=== PATIENT | female | born 1940 | race Caucasian/White ===

== ENCOUNTER 2024-10-26 16:56 | Observation (INO) ==
--- NOTE | 2024-10-26 17:13 | Emergency Department Note ---
Impression & Plan Dizziness, Hypoxia, Shortness of breath, Urinary tract infection, Abdominal pain ED Provider Note CHIEF COMPLAINT: Dizziness, headache, UTI, hypertension, loss of balance HISTORY OF PRESENTING ILLNESS: The patient is an 84-year-old female who presents to the emergency department with her son reporting hypertension, dizziness, and a headache that started 2 days ago. The patient's son states that her speech and mental status is normal but is "worried about her loss of balance". The patient describes her dizziness as when she stands up she feels as if she can fall over. She denies falling. She does live alone but her son lives directly next to her and constantly is checking on her. She reports that approximately a week ago she completed a course of antibiotics and has been having ongoing UTIs as well as urinary issues since a gynecological sling surgery performed in 2022 for prolapse. She confirms burning with urination, urgency, frequency, headaches, dizziness, lower abdominal pain, and just not feeling herself. She denies fevers, upper respiratory symptoms, chest pain, shortness of breath, nausea or vomiting, constipation or diarrhea. REVIEW OF SYSTEMS: See HPI for pertinent positives and pertinent negatives. ALLERGIES: Morphine antibiotics, morphine MEDICATIONS: See below PAST MEDICAL HISTORY: See below PHYSICAL EXAM: VITALS: Vitals are noted on the nurse's note and reviewed by myself. Vital signs stable. GENERAL: 84-year-old female, lying comfortably in bed, in no acute distress, nondiaphoretic, well-developed well-nourished. SKIN: Capillary refill less than 2 seconds. HEENT: Normocephalic. PERRLA. EOMI. Nares patent. Mucous membranes moist. Neck is supple without nuchal rigidity. HEART: Regular rate and rhythm without murmurs gallops or rubs. LUNGS: Clear to auscultation bilaterally without wheezes, rales or rhonchi. Patient was coughing during physical exam. No retractions or accessory muscle use. ABDOMEN: Positive bowel sounds x 4. Normal tympanic percussion. Tenderness upon palpation to the right and left lower abdominal quadrants as well as the suprapubic region. Soft, without masses or organomegaly. No guarding or rebound tenderness. MUSCULOSKELETAL: No gross musculoskeletal defects. No pedal edema. NEURO: Patient was alert and oriented to person place and time. No focal neurological deficits. DIFFERENTIAL DIAGNOSIS: UTI, pyelonephritis, electrolyte abnormality, intracranial abnormality, upper respiratory infection, diverticulitis, bowel obstruction, inflammatory bowel disease, renal colic, PUD, biliary pathology, mesenteric ischemia, aortic pathology, perforated viscus, among others. ED COURSE AND MEDICAL DECISION MAKING: HISTORY FROM INDEPENDENT HISTORIAN: The patient herself and her son. MEDICATIONS GIVEN: 2 g Rocephin IV MONITOR: Continuous monitoring coordinator: Order was placed for continuous monitoring coordinator. Patient was placed on the monitoring coordinator and continuous pulse ox. Patient was noted to be in normal sinus rhythm at an initial rate of 77 bpm per my interpretation. EKG: EKG was interpreted by myself as normal sinus rhythm. No obvious arrhythmias. No ST or T wave abnormality. INTERPRETATION OF LABS: I interpreted the labs with full lab results as below in the lab section of this note. Pertinent lab results discussed in the MDM section below. INTERPRETATION OF IMAGING: Imaging studies were interpreted by myself and read by radiology as per the imaging section of this note. Chest x-ray - Lung nodule seen in the right midlung zone measuring 7.5 mm shows an increase interval since compared to previous exam from 2016. Cardiomegaly noted. Head CT - No acute intracranial abnormality. Age-matched brain changes and small artery disease. CT abdomen pelvis - Bilateral pelvic fullness and increased urinary bladder wall thickness suggesting UTI. Hiatal hernia. Uncomplicated colonic diverticulosis. Appendix diameter 7 mm with fluid however no fat stranding. Right basal pulmonary consolidation. CONSULTATION: On-call [facility] hospitalist - Dr. Mayers - presented the patient to the provider explaining her UTI and new onset dizziness/headaches. Informed them of her ambulatory trial where she became hypoxic and tachycardic. They confirm that they would evaluate the patient and admit them to medicine for further evaluation and monitoring. MDM SUMMARY: I evaluated the 84-year-old female presents to the emergency department due to hypertension, dizziness, headache, and UTI symptoms. She has recently completed a course of antibiotics and is on nitrofurantoin for 3 months by her primary care provider. She confirms burning with urination, urgency, frequency, headaches, dizziness, lower abdominal pain, and just not feeling herself. She denies fevers, upper respiratory symptoms, chest pain, shortness of breath, nausea or vomiting, constipation or diarrhea. On exam she is lying comfortably in bed. Blood pressure elevated highest 196/110. All other vitals within normal limits. Positive bowel sounds x 4. Tenderness upon palpation to the right and left lower abdominal quadrants of the suprapubic region. No guarding or rebound tenderness. The remaining portion of the physical exam is unremarkable and can be seen in detail above. IV access was established and labs were obtained. Urinalysis collected. Due to the patient's abdominal pain and surgery complications from 2022 CT abdomen and pelvis was ordered. Due to new onset headaches and dizziness head CT and and chest x-ray were ordered. No leukocytosis WBC 7.02. RBC 4.22. Hemoglobin hematocrit 11.5/36.3. Mild anemia with no previous labs for comparison. Patient was informed to follow-up with primary care for repeat testing. No electrolyte abnormalities. BUN 16. Creatinine 0.93. AST 17. ALT 10. Troponin 4.19. BNP 55. Urinalysis shows 3+ leukocyte Estrace, greater than 50 urine WBC, and 4+ urine bacteria. The patient does confirm urinary symptoms. She was started on [address] shows no acute intracranial abnormality. Chest x-ray shows no acute abnormality, cardiomegaly. CT abdomen pelvis shows urinary bladder wall thickening suggestive of UTI. All other results including incidental were thoroughly reviewed with the patient. When the patient ambulated to the restroom the nursing staff notified me that her oxygen dropped to 81% upon ambulation. The patient does not report feeling short of breath but the nursing staff states that she did appear to be. An ambulatory trial was completed and the patient dropped to 88% and became tachycardic at a rate of 110. Patient is still denying symptoms at this time but the nurse confirms that she did appear short of breath once again. Due to the patient's UTI, new onset dizziness, as well as hypoxia she was admitted to medicine for further evaluation and IV antibiotics. Consultation with on-call hospitalist can be seen in detail above. The patient was informed of this decision and her and her son agreed to the treatment plan. All of their questions were answered. The patient was admitted in stable condition. DIAGNOSIS: Dizziness, hypoxia, shortness of breath, urinary tract infection, abdominal pain The chart was completed utilizing [employer] voice recognition software. Grammatical errors, random word insertions, pronoun errors, and incomplete sentences are an occasional consequence of this system due to software limitations, ambient noise, and hardware issues. Any formal questions or concerns about the content, text, or information contained within the body of this dictation should be directly addressed to the provider for clarification. 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 Trochanteric bursitis, left hip Anxiety (Chronic) Cervical dystonia (Chronic) GERD (gastroesophageal reflux disease) (Chronic) HTN (hypertension) (Chronic) Social History Smoking Status: Former smoker Preferred Language: Yi Feels Safe at Home: Yes Allergies Allergies Allergy/AdvReac Type Severity Reaction Status Date / Time Sulfa (Sulfonamide Allergy Severe MOUTH Unverified 11/25/21 09:23 Antibiotics) THROAT SWELLING,SWEATING morphine AdvReac Unknown hallucinati Verified 11/25/21 09:23 ons Home Meds Home Medications Medication Instructions Recorded Confirmed Multivitamin 1 tab PO QAM ##0 02/20/09 10/26/24 Calcium/Vitamin D (Caltrate 600 1 tab PO QAM ##0 06/10/10 10/26/24 Plus *) Lansoprazole (Prevacid) 30 mg PO QAM ##0 06/10/10 10/26/24 Stool Softener 1 cap PO QAM ##0 07/16/10 10/26/24 Diazepam (Valium) 5 mg PO HS PRN RN #0 tabs 11/20/15 10/26/24 Estrogens, Conjugated (Premarin) 0.625 mg PO QAM #0 tabs 11/20/15 10/26/24 LOSARTAN POTASSIUM (COZAAR) 50 mg PO QAM #0 tabs 11/20/15 10/26/24 MIRABEGRON (MYRBETRIQ ER) 25 mg PO QAM ##0 11/20/15 10/26/24 POLYETHYLENE GLYCOL 3350 (MIRALAX) 17 g PO QPM #255 grams 11/20/15 10/26/24 amitriptyline 25 mg tablet 25 mg PO DAILY 11/25/21 10/26/24 atorvastatin 20 mg tablet 20 mg PO DAILY 11/25/21 10/26/24 lansoprazole 30 mg capsule,delayed 30 mg PO DAILY 11/25/21 10/26/24 release losartan 50 mg tablet 50 mg PO DAILY 11/25/21 10/26/24 montelukast 10 mg tablet 10 mg PO DAILY 11/25/21 10/26/24 oxybutynin chloride 5 mg tablet 5 mg PO DAILY 11/25/21 10/26/24 propranolol 60 mg capsule,24 60 mg PO DAILY 11/25/21 10/26/24 hr,extended release Previous Rx's Medication Instructions Recorded Acetaminophen (Tylenol Extra 1,000 mg PO Q8 30 days #180 tabs 12/16/15 Strength) Aspirin 325 mg PO BID 45 days ##90 12/16/15 Ferrous Gluconate 324 mg PO BIDM 30 days #60 tabs 12/16/15 Oxycodone HCl 5 mg PO Q4H PRN Pain 30 days #60 12/16/15 tabs Tapentadol HCl (Nucynta ER) 50 mg PO Q12 10 days ##20 12/16/15 Results & Data (ED) Vital Signs Vital Signs - 24 hr 10/26/24 17:03 10/26/24 17:16 10/26/24 17:16 Temperature 36.6 C Temperature Source Temporal Artery Scan Pulse Rate - Lying Pulse Rate - Sitting Pulse Rate - Standing Pulse Rate 81 Pulse Rate [Apical] 81 Respiratory Rate 20 19 Respiratory Effort / Characteristics Non-Labored Spontaneous Non-Labored Spontaneous Respiratory Depth Normal Normal Respiratory Pattern Regular Blood Pressure - Lying Blood Pressure - Sitting Blood Pressure- Standing Blood Pressure 146/88 H Blood Pressure [Right Arm] 164/110 H Blood Pressure Mean 107 Blood Pressure Mean [Right Arm] 128 Pulse Oximetry 95 95 95 Oxygen Delivery Method Room Air Room Air Room Air Sepsis Recent Fever Within 48 Hours No Sepsis New/Unexplained Change in Mental Status N/A Sepsis Action Taken by Nursing No Action Required 10/26/24 17:21 10/26/24 17:25 10/26/24 18:30 Temperature Temperature Source Pulse Rate - Lying Pulse Rate - Sitting Pulse Rate - Standing Pulse Rate 79 Pulse Rate [Apical] 74 Respiratory Rate 20 Respiratory Effort / Characteristics Non-Labored Spontaneous Respiratory Depth Normal Respiratory Pattern Blood Pressure - Lying Blood Pressure - Sitting Blood Pressure- Standing Blood Pressure Blood Pressure [Right Arm] 173/87 H Blood Pressure Mean Blood Pressure Mean [Right Arm] 115 Pulse Oximetry 95 94 Oxygen Delivery Method Room Air Sepsis Recent Fever Within 48 Hours Sepsis New/Unexplained Change in Mental Status Sepsis Action Taken by Nursing 10/26/24 19:30 10/26/24 21:05 10/26/24 21:30 Temperature Temperature Source Pulse Rate - Lying 74 Pulse Rate - Sitting 82 Pulse Rate - Standing 83 Pulse Rate Pulse Rate [Apical] 82 77 Respiratory Rate 26 H 21 Respiratory Effort / Characteristics Non-Labored Spontaneous Non-Labored Spontaneous Respiratory Depth Normal Normal Respiratory Pattern Regular Blood Pressure - Lying 178/100 H Blood Pressure - Sitting 172/102 H Blood Pressure- Standing 166/105 H Blood Pressure Blood Pressure [Right Arm] 162/81 H 196/110 H Blood Pressure Mean Blood Pressure Mean [Right Arm] 108 138 Pulse Oximetry 93 92 Oxygen Delivery Method Room Air Room Air Sepsis Recent Fever Within 48 Hours Sepsis New/Unexplained Change in Mental Status Sepsis Action Taken by Nursing Laboratory Data 10/26/24 17:21 10/26/24 17:21 Lab Results 10/26/24 10/26/24 10/26/24 Range/Units 17:21 17:33 18:12 WBC 7.02 (4.8-10.8) K/ul RBC 4.22 (4.20-5.40) M/uL Hgb 11.5 L (12.0-16.0) g/dl Hct 36.3 L (37.0-47.0) % MCV 86.0 (80.0-100.0) fL MCH 27.3 (25.0-34.0) pg MCHC 31.7 L (32.0-36.0) g/dL RDW Std Deviation 44.1 (36.4-46.3) fL RDW Coeff of Eriberto 14.3 (11.5-14.5) % Plt Count 254 (130-400) K/uL MPV 9.8 (9.4-12.4) fL Immature Gran % (Auto) 0.3 % Neut % (Auto) 49.8 % Lymph % (Auto) 33.8 % [place] % (Auto) 10.4 % Eos % (Auto) 5.0 % Baso % (Auto) 0.7 % Neut # (Auto) 3.50 (1.40-6.50) K/uL Lymph # (Auto) 2.37 (1.20-3.40) K/uL [place] # (Auto) 0.73 H (0.11-0.59) K/uL Eos # (Auto) 0.35 (0.00-0.50) K/uL Baso # (Auto) 0.05 (0.00-0.20) K/uL Immature Gran # (Auto) 0.02 (0.01-0.20) K/uL Sodium 136 (136-145) mmol/L Potassium 4.1 (3.5-5.1) mmol/L Chloride 101 (98-107) mmol/L Carbon Dioxide 29 (21-32) mmol/L Anion Gap 6 (3-11) BUN 16 (6-23) mg/dl Creatinine 0.93 (0.6-1.2) mg/dl Est Cr Clr Drug Dosing 37.7 ml/min eGFR 60.98 BUN/Creatinine Ratio 17.2 (10-20) Glucose 106 H (70-99(Fasting)) mg/dl Lactate 1.0 (0.4-2.0) mmol/L Calcium 9.6 (8.6-10.3) mg/dl Total Bilirubin 0.2 (0.2-1.0) mg/dl AST 17 (13-39) U/L ALT 10 (7-52) U/L Alkaline Phosphatase 79 (34-104) U/L Troponin I High Sens 4.9 (0-14) pg/ml B-Natriuretic Peptide 55 (0-100) pg/ml Total Protein 7.9 (6.0-8.3) gm/dl Albumin 4.4 (3.4-5.0) gm/dl Globulin 3.5 (2.5-4.0) gm/dl Albumin/Globulin Ratio 1.3 (0.9-2) Urine Color Yellow Urine Appearance Cloudy A (Clear) Urine pH 6.5 (4.5-7.5) Ur Specific [place] 1.010 (1.000-1.030) Urine Protein Negative (Negative) Urine Glucose (UA) Negative (Negative) Urine Ketones Negative (Negative) Urine Blood Negative (Negative) Urine Nitrite Negative (Negative) Urine Bilirubin Negative (Negative) Urine Urobilinogen Negative (Negative) Ur Leukocyte Esterase 3+ H (Negative) Urine WBC (Auto) >50 H (0-5) /hpf Urine RBC (Auto) 0-2 (0-2) /hpf U Hyaline Cast (Auto) 0-2 (0-2) /lpf U Epithel Cells (Auto) 6-10 H (0-2) /hpf Urine Bacteria (Auto) 4+ H (None Seen) Urine Comment Administered Medications Discontinued Medications Amitriptyline HCl (Amitriptyline Hcl 25 Mg Tab) 25 mg PO ONE STA Stop: 10/26/24 22:01 Last Admin: 10/26/24 22:23 Dose: 25 mg Documented By: HUNG Docusate Sodium (Docusate Sodium 100 Mg Cap) 100 mg PO NOW STA Stop: 10/26/24 22:03 Last Admin: 10/26/24 22:23 Dose: 100 mg Documented By: HUNG Ceftriaxone Sodium (Rocephin) 2,000 mg in 50 mls @ 100 mls/hr IV NOW STA Stop: 10/26/24 22:07 Last Infusion: 10/26/24 22:20 Dose: Infused Documented By: Admin: 10/26/24 21:46 Dose: 100 mls/hr Documented By: HUNG Ioversol (Optiray 320 100ml) 90 ml IV ONCE ONE Stop: 10/26/24 18:58 Last Admin: 10/26/24 18:57 Dose: 90 ml Documented By: RADHAMES Imaging Data Radiologist's Impression: Abdomen/Pelvis CT 10/26/24 17:22 EXAM: CT abd pelvis IV con only CLINICAL HISTORY: LLQ, suprapubic, RLQ abdominal pain, UTI TECHNIQUE: CT of the abdomen and pelvis was performed with 90 ML OPTIRAY 320 contrast, with the following protocol: axial images with, and reconstructed coronal and sagittal images. One of the following dose reduction techniques was utilized for this exam: Automated exposure control, adjustment of the mA and/or kV according to patient size, and use of iterative reconstruction. COMPARISON: No prior studies available for comparison. FINDINGS: Abdomen: Liver: Liver is mildly enlarged measures 17.3 cm in craniocaudal axis with normal shape, and density. A small geographical hypodense area is seen in segment V of liver, likely focal fatty infiltration. Few calcific granulomas are seen. Hepatic vasculature and biliary ducts are unremarkable. Gallbladder and Biliary System: The gallbladder is surgically removed with cholecystectomy clips in situ. The common bile duct is normal in caliber without dilation. Pancreas: Pancreatic head, body, and tail are visualized and appear normal in size and density. No pancreatic masses or calcifications were noted. The pancreatic duct is not dilated. Spleen: Normal in size, shape, and density. No splenic lesions or masses were identified. Calcific splenic granulomas are seen. Appendix: The appendix shows a diameter of 7 mm with fluid/mucin within its canal and an appendicolith however no annabelle appendiceal fat stranding. No evidence of appendiceal abscess or perforation. Kidneys and Adrenal Glands: Both kidneys are normal in size, shape, and position. Cortical thickness is within normal limits. No renal calculi however bilateral pelvic fullness is seen. Adrenal glands are unremarkable with no evidence of masses or hyperplasia. Pelvis: Urinary Bladder shows increased wall thickening of up to 5 mm. No intraluminal lesions identified. Uterus: Not visualised. Peritoneal and Retroperitoneal Structures: No free fluid or abnormal fluid collections were identified within the abdomen or pelvis. No lymphadenopathy was noted. Few tiny scattered calcific nodules are seen. A 6.6 mm fat containing supraumbilical hernia is seen. Atherosclerotic calcifications of aorta and its branches. Bowel: Multiple uncomplicated colonic diverticula are seen along sigmoid colon. No evidence of bowel obstruction or wall thickening. Sizable hiatal hernia is seen with increased mural thickening of herniated stomach upto 17 mm. Bones and Soft Tissues: Right hip replacement done. Spondylodegenerative changes of lumbar spine. No fractures or abnormal masses were identified. Slices through lung bases shows a right basal pulmonary consolidation measuring 25x17 mm. IMPRESSION: Bilateral pelvic fullness and increased urinary bladder wall thickness - suggest urine C/E for any UTI. Sizable hiatal hernia is seen with increased mural thickening of herniated stomach up to 17 mm. Uncomplicated colonic diverticulosis. The appendix shows a diameter of 7 mm with fluid within its canal and an appendicolith however no annabelle appendiceal fat stranding. Right basal pulmonary consolidation. Clinical correlation is recommended for further evaluation. Electronically signed by Vinh Mejia 10-26-2024 8:24 PM Chest X-Ray 10/26/24 17:23 EXAM: XR chest 1V portable CLINICAL HISTORY: Cough, dizziness, headaches. TECHNIQUE: An X-ray image of the chest is obtained in AP projection. COMPARISON: 11/20/2015. FINDINGS: Pulmonary Parenchyma: Lung nodule seen in the right mid lung zone measuring about 7.5 mm shows an interval increase compared with previous exam. No evidence of consolidation, collapse, or focal opacities. No evidence of pleural effusion or pleural thickening. Heart and Mediastinum: Cardiomegaly noted. No mediastinal widening or masses. No hilar or mediastinal lymphadenopathy. Bony Thorax: Bony thorax appears intact without fractures or deformities. Soft Tissues: Soft tissues overlying the chest wall are unremarkable. IMPRESSION: 1. A lung nodule seen in the right mid lung zone measuring about 7.5 mm shows an interval increase compared with the previous exam. 2. Cardiomegaly noted. Electronically signed by Vinh Mejia 10-26-2024 7:[address] 10/26/24 18:08 EXAM: CT head/brain wo con CLINICAL HISTORY: Dizziness, headaches. TECHNIQUE: Axial non-contrast CT scan of the brain was performed from the skull base to the high parietal region with coronal and sagittal reformats. One of the following dose reduction techniques were utilized for this exam: Automated exposure control, adjustment of the mA and/or kV according to patient size, use of iterative reconstruction. COMPARISON: None. FINDINGS: Brain Parenchyma: No evidence of acute infarct, hemorrhage, or mass effect. Accentuated periventricular white matter hypodenisty denoting small artery disease. Ventricular System: Mild symmetrical dilatation of the ventricular system with wide cortical sulci and extraaxial CSF spaces (involutional changes). No evidence of hydrocephalus. Subarachnoid Spaces: Wide sulci and cisterns. No evidence of subarachnoid hemorrhage or extra-axial fluid collections. Cerebellum and Brainstem: No masses, lesions, or areas of abnormal density. Side note of tentorial leaflet calcifications. Orbits: Normal appearance of the globes, optic nerves, and extraocular muscles. No evidence of orbital masses or abnormal density. Sinuses: Clear paranasal sinuses. No evidence of sinusitis or mucosal thickening. Mastoid Air Cells: Clear mastoid air cells. No evidence of mastoiditis. Skull: Normal skull morphology. No acute fractures. IMPRESSION: No CT evidence of acute infarct, hemorrhage, or mass effect. 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 Electronically signed by Vinh Mejia 10-26-2024 8:21 PM Discharge Plan Visit Data Chief Complaint: Dizziness Stated Complaint: DIZZY,HEADACHE,UTI,HTN,LOSS OF BALANCE ED Provider: [place] [facility] ED Midlevel Provider: Amy Callahan Discharge Problem: Dizziness, Hypoxia, Shortness of breath, Urinary tract infection, Abdominal pain Patient Disposition: Admitted As Inpatient Condition: Fair Discharge Instructions Interventions: ED Discharge Assessment Last Done: 10/26/24 22:45 Discharge Problem: Urinary tract infection Qualifiers: Urinary tract infection type: acute cystitis Hematuria presence: without hematuria Qualified Code(s): N30.00 - Acute cystitis without hematuria Abdominal pain Qualifiers: Abdominal location: lower abdomen, unspecified Qualified Code(s): R10.30 - Lower abdominal pain, unspecified
[2024-10-26 17:49] LABS: Basophils # (auto) 0.05 K/uL (0.00-0.20); Basophils % (auto) 0.7 %; Eosinophils # (auto) 0.35 K/uL (0.00-0.50); Hematocrit (blood only) 36.3 % (37.0-47.0); Hemoglobin 11.5 g/dl (12.0-16.0); Immature Granulocytes # (auto) 0.02 K/uL (0.01-0.20); Immature Granulocytes % (auto) 0.3 %; Lymphocytes # (auto) 2.37 K/uL (1.20-3.40); Lymphocytes % (auto) 33.8 %; Mean Corpuscular Hemoglobin 27.3 pg (25.0-34.0); Mean Corpuscular Hgb Conc 31.7 g/dL (32.0-36.0); Mean Platelet Volume 9.8 fL (9.4-12.4); Monocytes # (auto) 0.73 K/uL (0.11-0.59); Monocytes % (auto) 10.4 %; Neutrophils % (auto) 49.8 %; Platelet Count 254 K/uL (130-400); RDW Coefficient of Variation 14.3 % (11.5-14.5); RDW Standard Deviation 44.1 fL (36.4-46.3); Red Blood Count 4.22 M/uL (4.20-5.40); White Blood Count 7.02 K/ul (4.8-10.8)
[2024-10-26 18:06] LABS: Albumin Globulin Ratio 1.3 (0.9-2); Albumin Level 4.4 gm/dl (3.4-5.0); BUN Creatinine Ratio 17.2 (10-20); Bilirubin,Total 0.2 mg/dl (0.2-1.0); Calcium 9.6 mg/dl (8.6-10.3); Creatinine Clr Calc Pharmacy 37.7 ml/min; Globulin 3.5 gm/dl (2.5-4.0); Potassium 4.1 mmol/L (3.5-5.1); Total Protein 7.9 gm/dl (6.0-8.3)
[2024-10-26 18:13] LABS: Troponin I High Sensitivity 4.9 pg/ml (0-14)
[2024-10-26 18:33] LABS: Appearance Urine Cloudy (Clear); Bilirubin Urine Negative (Negative); Blood Urine Negative (Negative); Color Urine Yellow; Glucose Urine UA Negative (Negative); Ketones Urine Negative (Negative); Nitrite Urine Negative (Negative); Protein Urine Negative (Negative); Urobilinogen Urine Negative (Negative); pH Urine 6.5 (4.5-7.5)
[2024-10-26 18:34] LABS: Bacteria Urine Automated 4+ (None Seen); Cast Urine Automated 0-2 /lpf (0-2); Leukocyte Esterase Urine 3+ (Negative); RBC Urine Automated 0-2 /hpf (0-2); WBC Urine Automated >50 /hpf (0-5)
[2024-10-26] MEDS: OPTIRAY 320 100ml IV ONE (18:57)
--- NOTE | 2024-10-26 19:36 | XRay Report ---
EXAM: XR chest 1V portable CLINICAL HISTORY: Cough, dizziness, headaches. TECHNIQUE: An X-ray image of the chest is obtained in AP projection. COMPARISON: 11/20/2015. FINDINGS: Pulmonary Parenchyma: Lung nodule seen in the right mid lung zone measuring about 7.5 mm shows an interval increase compared with previous exam. No evidence of consolidation, collapse, or focal opacities. No evidence of pleural effusion or pleural thickening. Heart and Mediastinum: Cardiomegaly noted. No mediastinal widening or masses. No hilar or mediastinal lymphadenopathy. Bony Thorax: Bony thorax appears intact without fractures or deformities. Soft Tissues: Soft tissues overlying the chest wall are unremarkable. IMPRESSION: 1. A lung nodule seen in the right mid lung zone measuring about 7.5 mm shows an interval increase compared with the previous exam. 2. Cardiomegaly noted. Electronically signed by Vinh Mejia 10-26-2024 7:36 PM
--- NOTE | 2024-10-26 20:22 | CT Scan Report ---
EXAM: CT head/brain wo con CLINICAL HISTORY: Dizziness, headaches. TECHNIQUE: Axial non-contrast CT scan of the brain was performed from the skull base to the high parietal region with coronal and sagittal reformats. One of the following dose reduction techniques were utilized for this exam: Automated exposure control, adjustment of the mA and/or kV according to patient size, use of iterative reconstruction. COMPARISON: None. FINDINGS: Brain Parenchyma: No evidence of acute infarct, hemorrhage, or mass effect. Accentuated periventricular white matter hypodenisty denoting small artery disease. Ventricular System: Mild symmetrical dilatation of the ventricular system with wide cortical sulci and extraaxial CSF spaces (involutional changes). No evidence of hydrocephalus. Subarachnoid Spaces: Wide sulci and cisterns. No evidence of subarachnoid hemorrhage or extra-axial fluid collections. Cerebellum and Brainstem: No masses, lesions, or areas of abnormal density. Side note of tentorial leaflet calcifications. Orbits: Normal appearance of the globes, optic nerves, and extraocular muscles. No evidence of orbital masses or abnormal density. Sinuses: Clear paranasal sinuses. No evidence of sinusitis or mucosal thickening. Mastoid Air Cells: Clear mastoid air cells. No evidence of mastoiditis. Skull: Normal skull morphology. No acute fractures. IMPRESSION: No CT evidence of acute infarct, hemorrhage, or mass effect. 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 Electronically signed by Vinh Mejia 10-26-2024 8:21 PM
--- NOTE | 2024-10-26 20:25 | CT Scan Report ---
EXAM: CT abd pelvis IV con only CLINICAL HISTORY: LLQ, suprapubic, RLQ abdominal pain, UTI TECHNIQUE: CT of the abdomen and pelvis was performed with 90 ML OPTIRAY 320 contrast, with the following protocol: axial images with, and reconstructed coronal and sagittal images. One of the following dose reduction techniques was utilized for this exam: Automated exposure control, adjustment of the mA and/or kV according to patient size, and use of iterative reconstruction. COMPARISON: No prior studies available for comparison. FINDINGS: Abdomen: Liver: Liver is mildly enlarged measures 17.3 cm in craniocaudal axis with normal shape, and density. A small geographical hypodense area is seen in segment V of liver, likely focal fatty infiltration. Few calcific granulomas are seen. Hepatic vasculature and biliary ducts are unremarkable. Gallbladder and Biliary System: The gallbladder is surgically removed with cholecystectomy clips in situ. The common bile duct is normal in caliber without dilation. Pancreas: Pancreatic head, body, and tail are visualized and appear normal in size and density. No pancreatic masses or calcifications were noted. The pancreatic duct is not dilated. Spleen: Normal in size, shape, and density. No splenic lesions or masses were identified. Calcific splenic granulomas are seen. Appendix: The appendix shows a diameter of 7 mm with fluid/mucin within its canal and an appendicolith however no annabelle appendiceal fat stranding. No evidence of appendiceal abscess or perforation. Kidneys and Adrenal Glands: Both kidneys are normal in size, shape, and position. Cortical thickness is within normal limits. No renal calculi however bilateral pelvic fullness is seen. Adrenal glands are unremarkable with no evidence of masses or hyperplasia. Pelvis: Urinary Bladder shows increased wall thickening of up to 5 mm. No intraluminal lesions identified. Uterus: Not visualised. Peritoneal and Retroperitoneal Structures: No free fluid or abnormal fluid collections were identified within the abdomen or pelvis. No lymphadenopathy was noted. Few tiny scattered calcific nodules are seen. A 6.6 mm fat containing supraumbilical hernia is seen. Atherosclerotic calcifications of aorta and its branches. Bowel: Multiple uncomplicated colonic diverticula are seen along sigmoid colon. No evidence of bowel obstruction or wall thickening. Sizable hiatal hernia is seen with increased mural thickening of herniated stomach upto 17 mm. Bones and Soft Tissues: Right hip replacement done. Spondylodegenerative changes of lumbar spine. No fractures or abnormal masses were identified. Slices through lung bases shows a right basal pulmonary consolidation measuring 25x17 mm. IMPRESSION: Bilateral pelvic fullness and increased urinary bladder wall thickness - suggest urine C/E for any UTI. Sizable hiatal hernia is seen with increased mural thickening of herniated stomach up to 17 mm. Uncomplicated colonic diverticulosis. The appendix shows a diameter of 7 mm with fluid within its canal and an appendicolith however no annabelle appendiceal fat stranding. Right basal pulmonary consolidation. Clinical correlation is recommended for further evaluation. Electronically signed by Vinh Mejia 10-26-2024 8:24 PM
--- NOTE | 2024-10-26 21:36 | Emergency Department Note ---
ED Visit Note I was consulted by the Advanced Practice Provider. I personally made/approved the management plan and take responsibility for the patient management. I performed a substantive portion of the visit. This includes the aspects of: [-I independently interpreted the following studies:][Chest x-ray shows some mild cardiomegaly, no CHF or pneumonia.] The patient's laboratory workup is essentially unrevealing. Her chest x-ray does not show pneumonia or CHF. Urinalysis does show findings of infection. Additionally, the patient was hypoxic with exertion. Given her findings and given her complaints, hospitalization is indicated. .
[2024-10-26] MEDS: cefTRIAXone SODIUM 2,000 MG/50 ML BAG IV STA (21:46)
[2024-10-26] MEDS: AMITRIPTYLINE HCL 25 MG TAB PO STA (22:23)
[2024-10-26] MEDS: DOCUSATE SODIUM 100 MG CAP PO STA (22:23)
--- NOTE | 2024-10-27 02:10 | History & Physical Report ---
Date of Service October 26, 2024 Assessment & Plan (1) Urinary tract infection: (2) Hypoxia: (3) Dizziness: Plan 84 year old female presents to the ER with dysuria and ambulatory dysfunction #UTI / ambulatory dysfunction Suspect her UTI is contributing towards her unsteadiness on her feet Does not feel safe to return home at this time given her current balance IV ceftriaxone 1000mg IV daily pending urine culture PT/OT #Lung nodule Discussed with patient, recommend following up as outpatient #Hypoxia on exertion Suspect poor inspiratory effort related to her UTI, minimal changes on CT and CXR and history not suggestive of pneumonia Incentive spirometry Q1HWA Consider ambulatory trial prior to discharge #Urge incontinence Continue oxybutynin and Myrbetriq #Hypertension Continue losartan #Insomnia Recommend she stops taking over the counter diphenhydramine Use melatonin as needed VTE Prophylaxis - Lovenox 40mg SQ daily Disposition - observation to med/surg Admission and Anticipated Discharge Date Admission Date: October 26, 2024 History of Present Illness Chief Complaint: Urinary symptoms Loss of balance / dizziness Primary Care Provider: Francisco Leiva MD Modesta Mejia is an 84 year old female who presents to the ER with headache, dizziness and loss of balance starting 2 days ago. She denies lightheadedness or vertigo and feels her dizziness is more due to the loss of balance which is abnormal for her. She denies any falls. She lives alone. She has multiple UTIs a year and has been prescribed nitrofurantoin for prophylaxis but is yet to start this. She has chronic lower abdominal pain since her sling surgery but doesn't normal have dysuria which she is currently having. No flank pain or fevers. Allergies Allergy/AdvReac Type Severity Reaction Status Date / Time Sulfa (Sulfonamide Allergy Severe MOUTH Unverified 11/25/21 09:23 Antibiotics) THROAT SWELLING,SWEATING morphine AdvReac Unknown hallucinati Verified 11/25/21 09:23 ons Home Medications Medication Instructions Recorded Confirmed Type Multivitamin 1 tab PO QAM ##0 02/20/09 10/26/24 History Calcium/Vitamin D (Caltrate 600 1 tab PO QAM ##0 06/10/10 10/26/24 History Plus *) Lansoprazole (Prevacid) 30 mg PO QAM ##0 06/10/10 10/26/24 History Stool Softener 1 cap PO QAM ##0 07/16/10 10/26/24 History Diazepam (Valium) 5 mg PO HS PRN RN #0 tabs 11/20/15 10/26/24 History Estrogens, Conjugated (Premarin) 0.625 mg PO QAM #0 tabs 11/20/15 10/26/24 History LOSARTAN POTASSIUM (COZAAR) 50 mg PO QAM #0 tabs 11/20/15 10/26/24 History MIRABEGRON (MYRBETRIQ ER) 25 mg PO QAM ##0 11/20/15 10/26/24 History POLYETHYLENE GLYCOL 3350 (MIRALAX) 17 g PO QPM #255 grams 11/20/15 10/26/24 History Acetaminophen (Tylenol Extra 1,000 mg PO Q8 30 days #180 tabs 12/16/15 10/26/24 Rx Strength) Aspirin 325 mg PO BID 45 days ##90 12/16/15 10/26/24 Rx Ferrous Gluconate 324 mg PO BIDM 30 days #60 tabs 12/16/15 10/26/24 Rx Oxycodone HCl 5 mg PO Q4H PRN Pain 30 days #60 12/16/15 10/26/24 Rx tabs Tapentadol HCl (Nucynta ER) 50 mg PO Q12 10 days ##20 12/16/15 10/26/24 Rx amitriptyline 25 mg tablet 25 mg PO DAILY 11/25/21 10/26/24 History atorvastatin 20 mg tablet 20 mg PO DAILY 11/25/21 10/26/24 History lansoprazole 30 mg capsule,delayed 30 mg PO DAILY 11/25/21 10/26/24 History release losartan 50 mg tablet 50 mg PO DAILY 11/25/21 10/26/24 History montelukast 10 mg tablet 10 mg PO DAILY 11/25/21 10/26/24 History oxybutynin chloride 5 mg tablet 5 mg PO DAILY 11/25/21 10/26/24 History propranolol 60 mg capsule,24 60 mg PO DAILY 11/25/21 10/26/24 History hr,extended release nitrofurantoin macrocrystal 50 mg 50 mg PO DAILY 10/27/24 10/27/24 History capsule 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 Trochanteric bursitis, left hip Anxiety (Chronic) Cervical dystonia (Chronic) GERD (gastroesophageal reflux disease) (Chronic) HTN (hypertension) (Chronic) Social History Smoking Status: Former smoker Smoking End Date: 43 years ago; Hx Alcohol Use: No Hx Substance Use: No Preferred Language: Yoruba Esthetician Makeup Artist Required: No Beliefs That Will Affect Care: None Current Living Situation: Alone Other Information That Helps Us Care for You: No Feels Safe at Home: Yes Safety Concerns: Feels Safe At This Time Assistive Devices: Glasses and Other Assistive Devices Comment: partial lower plate Review of Systems Review of Systems: All systems reviewed & are unremarkable except as noted in HPI & below Physical Exam Constitutional: WD/WN, vitals as above ENMT: external ear and nose normal, oropharynx normal Respiratory: normal respiratory effort, lungs clear to auscultation Cardiovascular: RRR, no murmur, no edema Gastrointestinal (Abdomen): Percussion/Palpation: + abdomen tender (s uprapubic) and abdomen soft; no guarding and abdomen not rigid Genitourinary: no CVA tenderness Results & Data Results & Data Vital Signs (Past 12 Hours) Vital Signs Temp Pulse Pulse Pulse Resp BP BP 10/27/24 00:24 82 18 138/80 10/27/24 00:01 36.6 C 80 18 190/90 H 10/26/24 22:30 78 22 177/91 H 10/26/24 21:30 77 21 196/110 H 10/26/24 19:30 82 26 H 162/81 H 10/26/24 18:30 74 20 173/87 H 10/26/24 17:25 79 10/26/24 17:21 10/26/24 17:16 81 19 164/110 H 10/26/24 17:16 10/26/24 17:03 36.6 C 81 20 146/88 H Pulse Ox O2 Del Method 10/27/24 00:24 93 Room Air 10/27/24 00:01 95 Room Air 10/26/24 22:30 93 Room Air 10/26/24 21:30 92 Room Air 10/26/24 19:30 93 Room Air 10/26/24 18:30 94 10/26/24 17:25 10/26/24 17:21 95 Room Air 10/26/24 17:16 95 Room Air 10/26/24 17:16 95 Room Air 10/26/24 17:03 95 Room Air Laboratory Results Abnormal lab results 10/26/24 10/26/24 Range/Units 17:21 18:12 Hgb 11.5 L (12.0-16.0) g/dl Hct 36.3 L (37.0-47.0) % MCHC 31.7 L (32.0-36.0) g/dL [place] # (Auto) 0.73 H (0.11-0.59) K/uL Glucose 106 H (70-99(Fasting)) mg/dl Urine Appearance Cloudy A (Clear) Ur Leukocyte Esterase 3+ H (Negative) Urine WBC (Auto) >50 H (0-5) /hpf U Epithel Cells (Auto) 6-10 H (0-2) /hpf Urine Bacteria (Auto) 4+ H (None Seen) Diagnostic Findings CT head/brain wo con CLINICAL HISTORY: Dizziness, headaches. TECHNIQUE: Axial non-contrast CT scan of the brain was performed from the skull base to the high parietal region with coronal and sagittal reformats. One of the following dose reduction techniques were utilized for this exam: Automated exposure control, adjustment of the mA and/or kV according to patient size, use of iterative reconstruction. COMPARISON: None. FINDINGS: Brain Parenchyma: No evidence of acute infarct, hemorrhage, or mass effect. Accentuated periventricular white matter hypodenisty denoting small artery disease. Ventricular System: Mild symmetrical dilatation of the ventricular system with wide cortical sulci and extraaxial CSF spaces (involutional changes). No evidence of hydrocephalus. Subarachnoid Spaces: Wide sulci and cisterns. No evidence of subarachnoid hemorrhage or extra-axial fluid collections. Cerebellum and Brainstem: No masses, lesions, or areas of abnormal density. Side note of tentorial leaflet calcifications. Orbits: Normal appearance of the globes, optic nerves, and extraocular muscles. No evidence of orbital masses or abnormal density. Sinuses: Clear paranasal sinuses. No evidence of sinusitis or mucosal thickening. Mastoid Air Cells: Clear mastoid air cells. No evidence of mastoiditis. Skull: Normal skull morphology. No acute fractures. IMPRESSION: No CT evidence of acute infarct, hemorrhage, or mass effect. 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 XR chest 1V portable CLINICAL HISTORY: Cough, dizziness, headaches. TECHNIQUE: An X-ray image of the chest is obtained in AP projection. COMPARISON: 11/20/2015. FINDINGS: Pulmonary Parenchyma: Lung nodule seen in the right mid lung zone measuring about 7.5 mm shows an interval increase compared with previous exam. No evidence of consolidation, collapse, or focal opacities. No evidence of pleural effusion or pleural thickening. Heart and Mediastinum: Cardiomegaly noted. No mediastinal widening or masses. No hilar or mediastinal lymphadenopathy. Bony Thorax: Bony thorax appears intact without fractures or deformities. Soft Tissues: Soft tissues overlying the chest wall are unremarkable. IMPRESSION: 1. A lung nodule seen in the right mid lung zone measuring about 7.5 mm shows an interval increase compared with the previous exam. 2. Cardiomegaly noted. CT abd pelvis IV con only CLINICAL HISTORY: LLQ, suprapubic, RLQ abdominal pain, UTI TECHNIQUE: CT of the abdomen and pelvis was performed with 90 ML OPTIRAY 320 contrast, with the following protocol: axial images with, and reconstructed coronal and sagittal images. One of the following dose reduction techniques was utilized for this exam: Automated exposure control, adjustment of the mA and/or kV according to patient size, and use of iterative reconstruction. COMPARISON: No prior studies available for comparison. FINDINGS: Abdomen: Liver: Liver is mildly enlarged measures 17.3 cm in craniocaudal axis with normal shape, and density. A small geographical hypodense area is seen in segment V of liver, likely focal fatty infiltration. Few calcific granulomas are seen. Hepatic vasculature and biliary ducts are unremarkable. Gallbladder and Biliary System: The gallbladder is surgically removed with cholecystectomy clips in situ. The common bile duct is normal in caliber without dilation. Pancreas: Pancreatic head, body, and tail are visualized and appear normal in size and density. No pancreatic masses or calcifications were noted. The pancreatic duct is not dilated. Spleen: Normal in size, shape, and density. No splenic lesions or masses were identified. Calcific splenic granulomas are seen. Appendix: The appendix shows a diameter of 7 mm with fluid/mucin within its canal and an appendicolith however no annabelle appendiceal fat stranding. No evidence of appendiceal abscess or perforation. Kidneys and Adrenal Glands: Both kidneys are normal in size, shape, and position. Cortical thickness is within normal limits. No renal calculi however bilateral pelvic fullness is seen. Adrenal glands are unremarkable with no evidence of masses or hyperplasia. Pelvis: Urinary Bladder shows increased wall thickening of up to 5 mm. No intraluminal lesions identified. Uterus: Not visualised. Peritoneal and Retroperitoneal Structures: No free fluid or abnormal fluid collections were identified within the abdomen or pelvis. No lymphadenopathy was noted. Few tiny scattered calcific nodules are seen. A 6.6 mm fat containing supraumbilical hernia is seen. Atherosclerotic calcifications of aorta and its branches. Bowel: Multiple uncomplicated colonic diverticula are seen along sigmoid colon. No evidence of bowel obstruction or wall thickening. Sizable hiatal hernia is seen with increased mural thickening of herniated stomach upto 17 mm. Bones and Soft Tissues: Right hip replacement done. Spondylodegenerative changes of lumbar spine. No fractures or abnormal masses were identified. Slices through lung bases shows a right basal pulmonary consolidation measuring 25x17 mm. IMPRESSION: Bilateral pelvic fullness and increased urinary bladder wall thickness - suggest urine C/E for any UTI. Sizable hiatal hernia is seen with increased mural thickening of herniated stomach up to 17 mm. Uncomplicated colonic diverticulosis. The appendix shows a diameter of 7 mm with fluid within its canal and an appendicolith however no annabelle appendiceal fat stranding. Right basal pulmonary consolidation. Medications Administered ER Medications Given: Ceftriaxone 2000mg IV Code Status & VTE Plan Code Status All treatment outside of cardiac arrest including intubation and ventilation. No treatment in the setting of a cardiac arrest. VTE Prophylaxis Plan VTE Prophylaxis will be ordered: Yes PG Care Time/CCT Total # of Minutes Spent Total Time Spent with Patient: Total time spent is greater than 50% in coordination of care (as documented) at patient's floor/unit and/or counseling patient: Coding Level of Care Code 71946 INT INP/OBS CARE 3/75MIN Diagnoses Urinary tract infection N30.00 Hematuria presence: without hematuria Urinary tract infection type: acute cystitis Hypoxia R09.02 Dizziness R42 (1) Urinary tract infection Hematuria presence: without hematuria Urinary tract infection type: acute cystitis Qualified Code(s): N30.00 - Acute cystitis without hematuria
[2024-10-27] MEDS: ACETAMINOPHEN 500 MG TAB PO SCH (05:47)
[2024-10-27] MEDS: PROPRANOLOL HCL 60 MG LA CAP PO SCH (07:17)
[2024-10-27] MEDS: ATORVASTATIN 20 MG TAB PO SCH (07:18)
[2024-10-27] MEDS: LOSARTAN POTASSIUM 50 MG TAB PO SCH (07:18)
[2024-10-27] MEDS: oxyBUTYnin chloride 5 MG TAB PO SCH (07:19)
[2024-10-27] MEDS: DOCUSATE SODIUM 100 MG CAP PO SCH (07:19)
[2024-10-27] MEDS: PANTOprazole 40 MG TAB PO SCH (07:19)
[2024-10-27] MEDS: VIBEGRON 75 MG TAB PO SCH (07:19)
[2024-10-27] MEDS: ESTROGENS, CONJUGATED 0.625 MG TAB PO SCH (07:19)
[2024-10-27] MEDS ORDERED: MELATONIN 3 MG TAB PO PRN (08:07)
[2024-10-27 08:27] LABS: Hematocrit (blood only) 36.9 % (37.0-47.0); Hemoglobin 11.9 g/dl (12.0-16.0); Mean Corpuscular Hemoglobin 27.5 pg (25.0-34.0); Mean Corpuscular Hgb Conc 32.2 g/dL (32.0-36.0); Mean Corpuscular Volume 85.2 fL (80.0-100.0); Mean Platelet Volume 9.9 fL (9.4-12.4); Platelet Count 258 K/uL (130-400); RDW Coefficient of Variation 13.9 % (11.5-14.5); RDW Standard Deviation 43.2 fL (36.4-46.3); Red Blood Count 4.33 M/uL (4.20-5.40); White Blood Count 10.97 K/ul (4.8-10.8)
--- NOTE | 2024-10-27 08:34 | Hospitalist Progress Note ---
Date of Service October 27, 2024 Assessment & Plan (1) Urinary tract infection: (2) Hypoxia: (3) Dizziness: Plan 84 year old female presents to the ER with dysuria and ambulatory dysfunction #UTI / ambulatory dysfunction Suspect her UTI is contributing towards her unsteadiness on her feet, did not feel safe to return home at this time given her current balance, can check B12 for completeness Continues on Ceftriaxone IV Urine cx pending -- follow Therapy evaluations pending to ensure safe to return home/needs if occur #Lung nodule Discussed with patient, recommend following up as outpatient No SOB, however supervising provider rec CT chest w/w/o and has been ordered and will f/u No pleuritic pain reported, 95% on RA. Continue IS #Hypoxia on exertion Suspect poor inspiratory effort related to her UTI, minimal changes on CT and CXR and history not suggestive of pneumonia Incentive spirometry Q1HWA CT as above Check iron studies w/ borderline anemia, also ferritin w/ chronic headache (?sinus congestion) Consider ambulatory trial prior to discharge #Urge incontinence Continue oxybutynin and Myrbetriq, tx UTI as above. #Hypertension Continue losartan, BP 137/85 #GERD - on lansoprozole at home, protonix not effective. Have changed this back but son can bring in as well if needed. Does have decent size hiatal hernia on imaging #Insomnia Recommend she stops taking over the counter diphenhydramine Use melatonin as needed VTE Prophylaxis - Lovenox 40mg SQ daily Disposition - continued inpatient stay for tx UTI/therapy evaluations. *Lower abd pain but no RLQ pain (noting CTAP w/ appendix w/ fecalith)- monitor for any issues Admission and Anticipated Discharge Date Admission Date: October 26, 2024 Supervising Physician Co-Signing Physician Notes The patient was not seen by me. The chart was reviewed. Case discussed with MARLI Dominguez. Chest CT scan pending to further investigate possible right lower lobe consolidation and lung nodule. Agree with assessment and plan Subjective Evaluated this morning, resting in bed. Reports less burning w/ most recent urination. Lower abdominal discomfort also improving. Working on Kegel exercises since her sling surgery. Avoided orange juice w/ baseline reflux, ordered lansoprazole but also reports son bringing this in. Less dizziness but reports frontal headache, not new since Febuary, would like a dose of tylenol. Notified nursing to provide. Waiting urine cultures, therapy evals. No CP/SOB. QUestions/concerns addressed at this time. Physical Exam 2 Physical Exam: General: 84yo female sitting up in bed, reading paper, NAD, reports feeling better than yesterday HEENT; head atraumatic, normocephalic, mmm, trachea midline, hard of hearing Resp: even/unlabored no wheezing/rales, on room air CV: RRR, no significant m/r/g, no pitting edema/calf tenderness GI: +BS throughout, slight suprapubic discomfort but no guarding/rebound no diaz MSK/Neuro: nonfocal, not confused, answering questions appropriately Psych: AOx3, cooperative with exam Results & Data Results & Data Vital Signs (Past 12 Hours) Vital Signs Temp Pulse Pulse Resp BP Pulse Ox O2 Del Method 10/27/24 07:29 36.6 C 92 H 18 137/85 95 Room Air 10/27/24 00:24 82 18 138/80 93 Room Air 10/27/24 00:01 36.6 C 80 18 190/90 H 95 Room Air 10/26/24 22:30 78 22 177/91 H 93 Room Air 10/26/24 21:30 77 21 196/110 H 92 Room Air Laboratory Results 10/27/24 08:09 PG Care Time/CCT Total # of Minutes Spent Total Time Spent with Patient: Total time spent is greater than 50% in coordination of care (as documented) at patient's floor/unit and/or counseling patient: Coding Level of Care Code 99986 SUB INP/OBS CARE 3/50MIN Diagnoses Urinary tract infection N30.00 Hematuria presence: without hematuria Urinary tract infection type: acute cystitis Hypoxia R09.02 Dizziness R42 (1) Urinary tract infection Hematuria presence: without hematuria Urinary tract infection type: acute cystitis Qualified Code(s): N30.00 - Acute cystitis without hematuria
[2024-10-27 08:42] LABS: BUN Creatinine Ratio 17.9 (10-20); Calcium 9.6 mg/dl (8.6-10.3); Creatinine Clr Calc Pharmacy 41.2 ml/min; Magnesium 1.9 mg/dl (1.7-2.4); Potassium 4.2 mmol/L (3.5-5.1)
[2024-10-27] MEDS: LANSOPRAZOLE 30 MG SOLTAB PO SCH (09:00)
[2024-10-27 09:03] LABS: Ferritin 11.8 ng/ml (8-388)
--- NOTE | 2024-10-27 09:17 | CT Scan Report ---
Technique: Axial computed tomography images were obtained of the chest without intravenous contrast Findings: There is an approximately 4 cm area of alveolar consolidation in the posterior right lung base, likely due to pneumonia. There is a 6 mm right middle lobe nodule as well as a 3 mm nodule. There is a 3 mm nodular opacity along the right minor fissure. There is a 2 mm left lower lobe nodule. There is a calcified granuloma in the right middle lobe. There is no pleural effusion or pneumothorax. There is mild dependent subsegmental atelectasis in both lower lobes. There is mild emphysema. No endobronchial lesion is seen There are calcified precarinal and subcarinal lymph nodes, consistent with old granulomatous disease. There is no noncalcified mediastinal, hilar, or axillary adenopathy. The thoracic aorta is of normal caliber. There is no pericardial effusion. There is extensive coronary atherosclerosis There is a moderate sized hiatal hernia. The gallbladder has been removed. There are small calcified splenic granulomas. No fracture is seen. No focal osseous lesion is evident Impression: 1. Right lower lobe opacity that is likely due to pneumonia. Neoplasm is less likely but cannot be excluded. A follow-up chest CT is recommended in 3 months to ensure resolution after treatment 2. Several smaller pulmonary nodules, likely benign. Stability could be ensured by the above recommended follow-up CT 3. Moderate sized hiatal hernia 4. Old granulomatous disease 5. Coronary atherosclerosis 6. Mild emphysema ACT 112: Positive. There are findings on this exam that require communication between the performing entity and the patient following Patient Test Result Information Act ([place] ACT 112) guidelines. Electronically signed by Tyshawn Lowry 10-27-2024 09:17 AM
[2024-10-27] MEDS: IRON SUCROSE 300 MG in SODIUM CHLORIDE 0.9% 250 ML IV ONE (10:53)
--- NOTE | 2024-10-27 11:52 | Electrocardiogram Report ---
Test Reason : Blood Pressure : */* mmHG Vent. Rate : 77 BPM Atrial Rate : 77 BPM P-R Int : 156 ms QRS Dur : 72 ms QT Int : 378 ms P-R-T Axes : 10 -4 30 degrees QTcB Int : 427 ms Normal sinus rhythm Minimal voltage criteria for LVH, may be normal variant ( R in aVL ) Borderline ECG When compared with ECG of 20-Nov-2015 09:49, No significant change was found Confirmed by Nima Forrester ([id number]) on 10/27/2024 11:52:30 AM Referred By: REFERRED SELF Confirmed By: Nima Forrester
[2024-10-27 19:56] VITALS: RESP 18
[2024-10-27] MEDS: cefTRIAXone SODIUM 1,000 MG/50 ML BAG IV SCH (20:22)
[2024-10-27] MEDS: AMITRIPTYLINE HCL 25 MG TAB PO SCH (20:22)
[2024-10-27] MEDS: ENOXAPARIN INJ 40 MG/0.4 ML SYR SQ SCH (20:23)
[2024-10-27] MEDS: MONTELUKAST SODIUM 10 MG TABLET PO SCH (20:23)
[2024-10-28 07:20] LABS: Basophils # (auto) 0.06 K/uL (0.00-0.20); Eosinophils # (auto) 0.39 K/uL (0.00-0.50); Eosinophils % (auto) 6.5 %; Hematocrit (blood only) 35.6 % (37.0-47.0); Hemoglobin 11.4 g/dl (12.0-16.0); Immature Granulocytes # (auto) 0.01 K/uL (0.01-0.20); Immature Granulocytes % (auto) 0.2 %; Lymphocytes # (auto) 1.54 K/uL (1.20-3.40); Lymphocytes % (auto) 25.6 %; Mean Corpuscular Hemoglobin 27.3 pg (25.0-34.0); Mean Corpuscular Volume 85.4 fL (80.0-100.0); Mean Platelet Volume 9.9 fL (9.4-12.4); Monocytes # (auto) 0.56 K/uL (0.11-0.59); Monocytes % (auto) 9.3 %; Neutrophils # (auto) 3.46 K/uL (1.40-6.50); Neutrophils % (auto) 57.4 %; Platelet Count 242 K/uL (130-400); RDW Coefficient of Variation 14.1 % (11.5-14.5); RDW Standard Deviation 43.8 fL (36.4-46.3); Red Blood Count 4.17 M/uL (4.20-5.40); White Blood Count 6.02 K/ul (4.8-10.8)
[2024-10-28 07:43] LABS: BUN Creatinine Ratio 15.8 (10-20); Calcium 9.5 mg/dl (8.6-10.3); Creatinine Clr Calc Pharmacy 36.5 ml/min; Potassium 4.2 mmol/L (3.5-5.1)
[2024-10-28 07:54] VITALS: BP 142/80; PULSE 88; TEMP 98.2; O2SAT 94
[2024-10-28] MEDS: CYANOCOBALAMIN (B-12) 500 MCG TABLET PO SCH (07:55)
[2024-10-28] MEDS ORDERED: Nursing to Pharmacy Communication SCH (13:15)
--- NOTE | 2024-10-28 13:49 | Discharge Summary ---
Discharge Summary Date of Service October 28, 2024 Principal Dx & Hospital Course #1 = Principal Diagnosis (1) Urinary tract infection: (2) Hypoxia: (3) Dizziness: Plan #UTI / ambulatory dysfunction 84 year old female presents to the ER with dysuria and ambulatory dysfunction found to have UTI. UC with price sensitive E.coli, recieved Ceftriaxone and discharged home with course of cefdinir. Encouraged to start the daily Prophylactic antibiotic that was prescribed after the course of cefdinir. Seen by PT/OT and recommended safe for discharge. Patient has been ambulating in the room day of discharge without issue #Lung nodule seen on chest x-ray, chest CT showing right lower lung opacity that is suggestive of pneumonia however patient has no symptoms, is not hypoxic. Neoplasm is less likely but cannot be excluded. Recommend follow-up chest CT in 3 months, patient is aware of this. There are also several smaller pulmonary nodule jewels that should be followed on repeat CT. #Hypoxia on exertion Suspect poor inspiratory effort related to her UTI, Iron studies did show iron deficiency anemia, was given 1 dose of Venofer and will be continued on her home iron supplementation. Has remained stable on room air #Urge incontinence Continue oxybutynin and Myrbetriq, tx UTI as above. #Hypertension Continue losartan #GERD - continue lansoprozole #Insomnia - Recommend she stops taking over the counter diphenhydramine, Use melatonin as needed dispo: Discharge to home today, offered home health but patient declined Notes For Next Care Provider med list lists aspirin 325 mg twice daily for DVT prevention, unsure why she is on this. No recent surgery. Not discontinued but should be evaluated against her outpatient records Medication Changes From Visit cefdinir twice daily x 4 days Admission HPI Per Admitting Provider Modesta Mejia is an 84 year old female who presents to the ER with headache, dizziness and loss of balance starting 2 days ago. She denies lightheadedness or vertigo and feels her dizziness is more due to the loss of balance which is abnormal for her. She denies any falls. She lives alone. She has multiple UTIs a year and has been prescribed nitrofurantoin for prophylaxis but is yet to start this. She has chronic lower abdominal pain since her sling surgery but doesn't normal have dysuria which she is currently having. No flank pain or fevers. Discharge Exam General: NAD, VS as above Resp: normal respiratory effort, lungs clear to auscultation CV: RRR, no murmur, Abd: normal bowel sounds, non tender, no hepatosplenomegaly Extremities: Moves all extremities, no edema Neuro: A&O x3, Discharge Plan Discharge Items Patient Disposition: Home - Self-Care Reason For Visit: UTI, AMBULATORY DYSFUNCTION Discharge Diagnosis: UTI Condition on Discharge: Fair Activity: Resume your previous activity Bathing: No limitations Driving/Machine Use: No limitations Weightbearing: Full weightbearing Non-emergency contact: Primary Care Provider Call non-emergency contact if: you have any medication questions, your symptoms worsen, your pain is not controlled and your temperature is above 101 Follow-up/Referrals: Francisco Leiva MD [Primary Care Provider] - (Follow up within one week ) Diet: Regular Addtl Attending Provider Instructions: Ms Mejia, Edin were hospitalized after having worsening ambulatory dysfunction at home. This was found to be from a UTI which we have started to treat with IV antibiotics and your symptoms have improved. You were seen by physical therapy and occupational therapy who agree that you are safe to return home. You have been started on Cefdinir for 4 more days. First dose AM 10/29, you will take this twice a day. After you finish this course, you can start the Nitrofurantoin daily that was previously prescribed. You also had a lung nodule seen on CT and should have a CT again in 3 months to check the stability of these to make sure they are not growing and something we need to be worried about. You were given IV iron for your low iron counts. You can decrease your home iron supplements to once daily since you had this infusion. You have also been started on daily Vitamin B12 replacement. You could also consider an over the counter multivitamin. You were offered home health and home therapy, which you declined. If you find yourself needing more help at home, your PCP can arrange these for you. Activity: You can do normal everyday activities as your body allows. Take rest breaks if you feel tired. Do not overexert. Stop activity if you have pain, shortness of breath or feel dizzy. Follow-up appointments: Make an appointment with your primary care physician within one week of clemente carter. A copy of this summary will be sent to them. Every time you see your primary care physician, or any other doctor, bring your medication list, and a list of questions. CONTACT YOUR PRIMARY CARE PROVIDER if you experience any of the following: Shortness of breath or difficulty breathing Fevers or chills Feeling tired with normal activity or experiencing dizziness or fainting Difficulty following your treatment plan, or difficulty taking medications CALL 911 OR GO TO THE EMERGENCY DEPARTMENT if you experience any of the fo llowing: Severe abdominal pain or nausea/vomiting Severe chest pain, or chest pain that radiates (moves) to your jaw or arm Sudden, severe shortness of breath or difficulty breathing Thank you for allowing us to participate in your care. Pending Studies at Discharge: No Stand-Alone Forms: [facility] Q-Sensei, Smoking Cessation Medications and DC Order Prescriptions: New cyanocobalamin (vitamin B-12) 500 mcg Tablet 500 mcg PO QAM Qty: 30 0RF cefdinir 300 mg capsule 300 mg PO BID 4 Days Qty: 8 0RF Continued Multivitamin tablet 1 tab PO QAM Qty: 0 Calcium/Vitamin D (Caltrate 600 Plus *) tablet 1 tab PO QAM Qty: 0 Stool Softener EACH 1 cap PO QAM Qty: 0 Diazepam (Valium) 5 MG tablet 5 mg PO HS PRN (Reason: RN) Qty: 0 Estrogens, Conjugated (Premarin) 0.625 MG tablet 0.625 mg PO QAM Qty: 0 MIRABEGRON (MYRBETRIQ ER) 25 MG tablet 25 mg PO QAM Qty: 0 POLYETHYLENE GLYCOL 3350 (MIRALAX) 1 POW POW 17 g PO QPM Qty: 255 Acetaminophen (Tylenol Extra Strength) 500 MG tablet 1,000 mg PO Q8 30 Days Qty: 180 0RF Rx Instructions: Take 3 times per day to lessen pain. Aspirin 325 MG ENTERIC COATED TAB 325 mg PO BID 45 Days Qty: 90 0RF Rx Instructions: Take to prevent blood clots. Oxycodone HCl 5 MG tablet 5 mg PO Q4H PRN (Reason: Pain) 30 Days Qty: 60 0RF Rx Instructions: Take as needed for Pain. Tapentadol HCl (Nucynta ER) 50 MG GICAG-QPE-GMC 50 mg PO Q12 10 Days Qty: 20 0RF Rx Instructions: Take for 10 days to lessen pain. propranolol 60 mg capsule,extended release 24 hr 60 mg PO DAILY lansoprazole 30 mg capsule,delayed release(DR/EC) 30 mg PO DAILY montelukast 10 mg tablet 10 mg PO DAILY atorvastatin 20 mg tablet 20 mg PO DAILY amitriptyline 25 mg tablet 25 mg PO DAILY losartan 50 mg tablet 50 mg PO DAILY oxybutynin chloride 5 mg tablet 5 mg PO DAILY Changed Ferrous Gluconate 324 MG tablet 324 mg PO DAILY 30 Days Qty: 60 0RF Held nitrofurantoin macrocrystal 50 mg capsule 50 mg PO DAILY Hold Instructions: Provider's Order - resume after completion of cefdinir Discontinued Lansoprazole (Prevacid) 30 MG CONTR REL CAP 30 mg PO QAM Qty: 0 LOSARTAN POTASSIUM (COZAAR) 50 MG tablet 50 mg PO QAM Qty: 0 Discharge Orders: Discharge Order (Routine); Ordered 10/28/24 Ordered By: Rosalia Brewster/Other Patient Handouts: Vitamin B12 (cyanocobalamin) Oral Tablet, Cefdinir Oral Capsule, Urinary Tract Infections in Women Admission Data Admit Date/Time: 10/27/24 11:49 Attending Provider: Carol Hernandez Admit Provider: Jacob Mayers Primary Care Provider: Francisco Leiva Other Providers: Jacob Mayers Other Interventions: Discharge Summary Assessment (RN) Last Done: 10/28/24 14:12 Hospital Stay Data Consultations 10/26/24 22:32 ED Decision to Admit Stat Diagnostic Imagining Performed Abdomen/Pelvis CT 10/26/24 17:22 EXAM: CT abd pelvis IV con only CLINICAL HISTORY: LLQ, suprapubic, RLQ abdominal pain, UTI TECHNIQUE: CT of the abdomen and pelvis was performed with 90 ML OPTIRAY 320 contrast, with the following protocol: axial images with, and reconstructed coronal and sagittal images. One of the following dose reduction techniques was utilized for this exam: Automated exposure control, adjustment of the mA and/or kV according to patient size, and use of iterative reconstruction. COMPARISON: No prior studies available for comparison. FINDINGS: Abdomen: Liver: Liver is mildly enlarged measures 17.3 cm in craniocaudal axis with normal shape, and density. A small geographical hypodense area is seen in segment V of liver, likely focal fatty infiltration. Few calcific granulomas are seen. Hepatic vasculature and biliary ducts are unremarkable. Gallbladder and Biliary System: The gallbladder is surgically removed with cholecystectomy clips in situ. The common bile duct is normal in caliber without dilation. Pancreas: Pancreatic head, body, and tail are visualized and appear normal in size and density. No pancreatic masses or calcifications were noted. The pancreatic duct is not dilated. Spleen: Normal in size, shape, and density. No splenic lesions or masses were identified. Calcific splenic granulomas are seen. Appendix: The appendix shows a diameter of 7 mm with fluid/mucin within its canal and an appendicolith however no annabelle appendiceal fat stranding. No evidence of appendiceal abscess or perforation. Kidneys and Adrenal Glands: Both kidneys are normal in size, shape, and position. Cortical thickness is within normal limits. No renal calculi however bilateral pelvic fullness is seen. Adrenal glands are unremarkable with no evidence of masses or hyperplasia. Pelvis: Urinary Bladder shows increased wall thickening of up to 5 mm. No intraluminal lesions identified. Uterus: Not visualised. Peritoneal and Retroperitoneal Structures: No free fluid or abnormal fluid collections were identified within the abdomen or pelvis. No lymphadenopathy was noted. Few tiny scattered calcific nodules are seen. A 6.6 mm fat containing supraumbilical hernia is seen. Atherosclerotic calcifications of aorta and its branches. Bowel: Multiple uncomplicated colonic diverticula are seen along sigmoid colon. No evidence of bowel obstruction or wall thickening. Sizable hiatal hernia is seen with increased mural thickening of herniated stomach upto 17 mm. Bones and Soft Tissues: Right hip replacement done. Spondylodegenerative changes of lumbar spine. No fractures or abnormal masses were identified. Slices through lung bases shows a right basal pulmonary consolidation measuring 25x17 mm. IMPRESSION: Bilateral pelvic fullness and increased urinary bladder wall thickness - suggest urine C/E for any UTI. Sizable hiatal hernia is seen with increased mural thickening of herniated stomach up to 17 mm. Uncomplicated colonic diverticulosis. The appendix shows a diameter of 7 mm with fluid within its canal and an appendicolith however no annabelle appendiceal fat stranding. Right basal pulmonary consolidation. Clinical correlation is recommended for further evaluation. Electronically signed by Vinh Mejia 10-26-2024 8:24 PM Chest X-Ray 10/26/24 17:23 EXAM: XR chest 1V portable CLINICAL HISTORY: Cough, dizziness, headaches. TECHNIQUE: An X-ray image of the chest is obtained in AP projection. COMPARISON: 11/20/2015. FINDINGS: Pulmonary Parenchyma: Lung nodule seen in the right mid lung zone measuring about 7.5 mm shows an interval increase compared with previous exam. No evidence of consolidation, collapse, or focal opacities. No evidence of pleural effusion or pleural thickening. Heart and Mediastinum: Cardiomegaly noted. No mediastinal widening or masses. No hilar or mediastinal lymphadenopathy. Bony Thorax: Bony thorax appears intact without fractures or deformities. Soft Tissues: Soft tissues overlying the chest wall are unremarkable. IMPRESSION: 1. A lung nodule seen in the right mid lung zone measuring about 7.5 mm shows an interval increase compared with the previous exam. 2. Cardiomegaly noted. Electronically signed by Vinh Mejia 10-26-2024 7:[address] 10/26/24 18:08 EXAM: CT head/brain wo con CLINICAL HISTORY: Dizziness, headaches. TECHNIQUE: Axial non-contrast CT scan of the brain was performed from the skull base to the high parietal region with coronal and sagittal reformats. One of the following dose reduction techniques were utilized for this exam: Automated exposure control, adjustment of the mA and/or kV according to patient size, use of iterative reconstruction. COMPARISON: None. FINDINGS: Brain Parenchyma: No evidence of acute infarct, hemorrhage, or mass effect. Accentuated periventricular white matter hypodenisty denoting small artery disease. Ventricular System: Mild symmetrical dilatation of the ventricular system with wide cortical sulci and extraaxial CSF spaces (involutional changes). No evidence of hydrocephalus. Subarachnoid Spaces: Wide sulci and cisterns. No evidence of subarachnoid hemorrhage or extra-axial fluid collections. Cerebellum and Brainstem: No masses, lesions, or areas of abnormal density. Side note of tentorial leaflet calcifications. Orbits: Normal appearance of the globes, optic nerves, and extraocular muscles. No evidence of orbital masses or abnormal density. Sinuses: Clear paranasal sinuses. No evidence of sinusitis or mucosal thickening. Mastoid Air Cells: Clear mastoid air cells. No evidence of mastoiditis. Skull: Normal skull morphology. No acute fractures. IMPRESSION: No CT evidence of acute infarct, hemorrhage, or mass effect. 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 Electronically signed by Vinh Mejia 10-26-2024 8:[address] 10/27/24 07:49 Technique: Axial computed tomography images were obtained of the chest without intravenous contrast Findings: There is an approximately 4 cm area of alveolar consolidation in the posterior right lung base, likely due to pneumonia. There is a 6 mm right middle lobe nodule as well as a 3 mm nodule. There is a 3 mm nodular opacity along the right minor fissure. There is a 2 mm left lower lobe nodule. There is a calcified granuloma in the right middle lobe. There is no pleural effusion or pneumothorax. There is mild dependent subsegmental atelectasis in both lower lobes. There is mild emphysema. No endobronchial lesion is seen There are calcified precarinal and subcarinal lymph nodes, consistent with old granulomatous disease. There is no noncalcified mediastinal, hilar, or axillary adenopathy. The thoracic aorta is of normal caliber. There is no pericardial effusion. There is extensive coronary atherosclerosis There is a moderate sized hiatal hernia. The gallbladder has been removed. There are small calcified splenic granulomas. No fracture is seen. No focal osseous lesion is evident Impression: 1. Right lower lobe opacity that is likely due to pneumonia. Neoplasm is less likely but cannot be excluded. A follow-up chest CT is recommended in 3 months to ensure resolution after treatment 2. Several smaller pulmonary nodules, likely benign. Stability could be ensured by the above recommended follow-up CT 3. Moderate sized hiatal hernia 4. Old granulomatous disease 5. Coronary atherosclerosis 6. Mild emphysema ACT 112: Positive. There are findings on this exam that require communication between the performing entity and the patient following Patient Test Result Information Act ([place] ACT 112) guidelines. Electronically signed by Tyshawn Lowry 10-27-2024 09:17 AM Pending Results Patient Have Any Pending Studies at Discharge: No Discharge Instructions Given to Patient (Per Discharging Provider) Edin Beck were hospitalized after having worsening ambulatory dysfunction at home. This was found to be from a UTI which we have started to treat with IV antibiotics and your symptoms have improved. You were seen by physical therapy and occupational therapy who agree that you are safe to return home. You have been started on Cefdinir for 4 more days. First dose AM 10/29, you will take this twice a day. After you finish this course, you can start the Nitrofurantoin daily that was previously prescribed. You also had a lung nodule seen on CT and should have a CT again in 3 months to check the stability of these to make sure they are not growing and something we need to be worried about. You were given IV iron for your low iron counts. You can decrease your home iron supplements to once daily since you had this infusion. You have also been started on daily Vitamin B12 replacement. You could also consider an over the counter multivitamin. You were offered home health and home therapy, which you declined. If you find yourself needing more help at home, your PCP can arrange these for you. Activity: You can do normal everyday activities as your body allows. Take rest breaks if you feel tired. Do not overexert. Stop activity if you have pain, shortness of breath or feel dizzy. Follow-up appointments: Make an appointment with your primary care physician within one week of discharge. A copy of this summary will be sent to them. Every time you see your primary care physician, or any other doctor, bring your medication list, and a list of questions. CONTACT YOUR PRIMARY CARE PROVIDER if you experience any of the following: Shortness of breath or difficulty breathing Fevers or chills Feeling tired with normal activity or experiencing dizziness or fainting Difficulty following your treatment plan, or difficulty taking medications CALL 911 OR GO TO THE EMERGENCY DEPARTMENT if you experience any of the following: Severe abdominal pain or nausea/vomiting Severe chest pain, or chest pain that radiates (moves) to your jaw or arm Sudden, severe shortness of breath or difficulty breathing Thank you for allowing us to participate in your care. Total Time Total Time Spent Total Time Spent (In Minutes): Time spent day of discharge 32 minutes including direct patient care, medication reconciliation, documentation, review of labs and images, and coordination of care. Coding Level of Care Code 76989 INP/OBS DISCH >30 MIN Diagnoses Urinary tract infection N30.00 Hematuria presence: without hematuria Urinary tract infection type: acute cystitis Hypoxia R09.02 Dizziness R42
== END 2024-10-28 16:02 | disposition home or self-care (01) | DRG 689 ==
LOC: ED 16:56 → 3N 16:56 → SUATTDRO 22:06 → 3N 22:45 → SUATTDRO 10-27 11:49